=== PATIENT | female | born 1990 | race Caucasian/White ===

== ENCOUNTER 2018-07-25 11:16 | Emergency (ER) | payer BC ==
[~2018-07-25] VITALS: Ht 175.3 cm; Wt 130.2 kg
[2018-07-25 11:26] VITALS: BP 129/79; Ht 175.3 cm; Wt 130.2 kg
== END 2018-07-25 11:55 | disposition home or self-care (01) ==
LOC: ED 11:16
DX: S16.1XXA Strain of muscle, fascia and tendon at neck level, initial encounter (principal); S29.011A Strain of muscle and tendon of front wall of thorax, initial encounter; M25.511 Pain in right shoulder; M25.512 Pain in left shoulder; R51 Headache; V43.52XA Car driver injured in collision with other type car in traffic accident, initial encounter; Y93.89 Activity, other specified; Y92.488 Other paved roadways as the place of occurrence of the external cause; Y99.8 Other external cause status